=== PATIENT | male | born 1980 | race American Indian/Alaskan Native ===

== ENCOUNTER 2017-05-13 10:21 | Emergency (ER) | payer OTHER ==
--- NOTE | 2017-05-13 10:24 | ED PDOC ---
Arrival/HPI - General Time Seen by Provider: 05/13/17 10:22 Historian: Patient - History of Present Illness Narrative History of Present Illness (Text): 05/13/17 10:23 36 y/o male, no significant pmh, nkda, c/o lt. forearm wound evaluation for possible suture removal. Pt. had the lt. forearm suture about 6-7 days ago, wondering if the wound is ready for suture removal, no fever or chills, no headache or night sweat, no difficulty moving the fingers, no other medical or psychological complaints. Past Medical History - Provider Review Nursing Documentation Reviewed: Yes Family/Social History - Physician Review Nursing Documentation Reviewed: Yes Family/Social History: Unknown Family HX Allergies/Home Meds Allergies/Adverse Reactions: Allergies No Known Allergies Allergy (Verified 05/13/17 11:02) Review of Systems - Review of Systems Constitutional: absent: Fatigue, Fevers Eyes: absent: Vision Changes ENT: absent: Hearing Changes Respiratory: absent: SOB, Cough Cardiovascular: absent: Chest Pain Gastrointestinal: absent: Abdominal Pain, Diarrhea, Nausea, Vomiting Musculoskeletal: absent: Arthralgias, Back Pain Skin: Laceration. absent: Rash, Pruritis, Abscess, Ulcer Physical Exam Vital Signs Reviewed: Yes Vital Signs Temp Pulse Resp BP Pulse Ox 05/13/17 10:34 98.6 F 79 16 128/84 99 Temperature: Afebrile Blood Pressure: Normal Pulse: Regular Respiratory Rate: Normal Appearance: Positive for: Well-Appearing, Non-Toxic, Comfortable Pain Distress: None Mental Status: Positive for: Alert and Oriented X 3 - Systems Exam Head: Present: Atraumatic, Normocephalic Pupils: Present: PERRL Extroacular Muscles: Present: EOMI Conjunctiva: Present: Normal Mouth: Present: Moist Mucous Membranes Neck: Present: Normal Range of Motion Respiratory/Chest: Present: Clear to Auscultation, Good Air Exchange. No: Respiratory Distress, Accessory Muscle Use Cardiovascular: Present: Regular Rate and Rhythm, Normal S1, S2. No: Murmurs Abdomen: Present: Normal Bowel Sounds. No: Tenderness, Distention, Peritoneal Signs Back: Present: Normal Inspection Upper Extremity: Present: Normal Inspection, Other (Lt. forearm flexor region visible 3 sutured wound which is healing and not completely healed, no cellulitis or streaking, no ulcers, FROM without limitation including 5 fingers , sensation intact, motor 5/5, +radial pulse, capillary refill< 2 seconds, neurovascular intact. ). No: Cyanosis, Edema Lower Extremity: Present: Normal Inspection. No: Edema Neurological: Present: GCS=15, CN II-XII Intact, Speech Normal Skin: Present: Warm, Dry, Normal Color. No: Rashes Psychiatric: Present: Alert, Oriented x 3, Normal Insight, Normal Concentration Medical Decision Making ED Course and Treatment: 05/13/17 11:05 -Pt. has prescription for augmentin which he didn't fill it up yet. -wound clean with betadine and saline, gauze dressing, augmentin ordered. -discharge home with education on fill your augmentin prescription, follow up with your own pmd and suture can be removed in 2 days, return to the ER for any new or worsening signs or symptoms. - PA / INVESTOR RELATIONS SPECIALIST / Resident Statement MD/DO has reviewed & agrees with the documentation as recorded. Disposition/Present on Arrival - Present on Arrival Any Indicators Present on Arrival: No History of DVT/PE: No History of Uncontrolled Diabetes: No Urinary Catheter: No History of Decub. Ulcer: No - Disposition Have Diagnosis and Disposition been Completed?: Yes Diagnosis: Visit for wound check Disposition: HOME/ ROUTINE Disposition Time: 11:06 Patient Plan: Discharge Condition: GOOD Additional Instructions: discharge home with education on fill your augmentin prescription, follow up with your own pmd and suture can be removed in 2 days, return to the ER for any new or worsening signs or symptoms. Referrals: PCP,NO [Primary Care Provider] - Follow up with primary [facility] at [facility] [place] [Outside] - Follow up with primary Forms: WORK NOTE
[2017-05-13 10:37] VITALS: BP 128/84; PULSE 79; RESP 16; TEMP 98.6; O2SAT 99; BMI 24.4
[2017-05-13] MEDS ORDERED: Amoxicillin-Clav 875-125 mg Tab PO STA (11:02)
== END 2017-05-13 11:25 | disposition home or self-care (01) ==
LOC: ED 10:21
DX: Z51.89 Encounter for other specified aftercare (principal)

== ENCOUNTER 2017-09-13 06:46 | Emergency (ER) | payer SELFPAY ==
[2017-09-13 06:48] VITALS: BMI 24.4
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
[2017-09-13] MEDS ORDERED: ceFAZolin 1 gm in NS 1 GM/100 ML BAG IVPB ONE (07:45)
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
[2017-09-13 11:09] VITALS: BP 140/72; PULSE 72; RESP 16; TEMP 97.6; O2SAT 100
== END 2017-09-13 11:08 | disposition home or self-care (01) ==
LOC: ED 06:46
DX: M79.89 Other specified soft tissue disorders (principal); S62.91XB Unspecified fracture of right hand, initial encounter for open fracture; W22.8XXA Striking against or struck by other objects, initial encounter; Y92.89 Other specified places as the place of occurrence of the external cause
CPT/HCPCS: 73110; 73130; 96365; 99285; J0690

== ENCOUNTER 2017-10-20 09:57 | Emergency (ER) | payer MEDICAID, OTHER ==
[2017-10-20 10:07] VITALS: BMI 23.7
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
[2017-10-20 15:49] VITALS: BP 138/87; PULSE 73; RESP 18; TEMP 97.4; O2SAT 99
--- NOTE | 2017-10-20 16:47 | RAD ---
PROCEDURE: Right Hand Radiographs. HISTORY: hand pain r/o fx COMPARISON: None available. FINDINGS: BONES: Comminuted angulated fracture deformity of the distal 5th metacarpal. The remainder the visualized osseous structures appear intact without acute displaced fracture. JOINTS: No dislocation. SOFT TISSUES: Soft tissue swelling. No evidence of radiopaque foreign body. OTHER FINDINGS: None. IMPRESSION: Comminuted angulated fracture deformity of the distal 5th metacarpal with associated soft tissue swelling.
[2017-10-20 17:00] LABS: BARBITURATES, UR NEGATIVE (NEGATIVE); BENZODIAZEPINES, UR NEGATIVE (NEGATIVE)
[2017-10-20 17:03] LABS: OPIATES, UR POSITIVE (NEGATIVE); PHENCYCLIDINE, UR POSITIVE (NEGATIVE)
== END 2017-10-20 17:27 | disposition home or self-care (01) ==
LOC: MERGE 09:57 → ED 09:57
DX: S62.306A Unspecified fracture of fifth metacarpal bone, right hand, initial encounter for closed fracture (principal); X58.XXXA Exposure to other specified factors, initial encounter; F19.90 Other psychoactive substance use, unspecified, uncomplicated
CPT/HCPCS: 29125; 73130; 80324; 80345; 80346; 80349; 80353; 80358; 80361; 83992; 96372; 99285; J1630

== ENCOUNTER 2017-10-25 07:55 | Emergency (ER) | payer OTHER ==
[2017-10-25 07:55] VITALS: BMI 24.4
[2017-10-25 08:10] VITALS: TEMP 98.6
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
[2017-10-25 12:34] LABS: BASO # 0.01 K/mm3 (0.0-2.0); BASO % 0.2 % (0.0-3.0); EOS # 0.1 (0.0-0.7); EOS % 0.9 % (1.5-5.0); GRAN # 3.28 (1.4-6.5); HEMOGLOBIN 13.4 g/dL (14.0-18.0); LYMPH % 34.9 % (22.0-35.0); MEAN CELL VOLUME 96.7 fl (80.0-105.0); MEAN CORPUSCULAR HEMOGLOBIN 31.8 pg (25.0-35.0); MEAN CORPUSCULAR HGB CONC 32.8 g/dl (31.0-37.0); MEAN PLATELET VOLUME 10.7 fl (7.0-11.0); MONO # 0.3 (0.1-0.6); RBC 4.22 10^6/uL (3.5-6.1); RED CELL DISTRIBUTION WIDTH 13.6 % (11.5-14.5); WHITE BLOOD COUNT 5.7 10^3/ul (4.5-11.0)
[2017-10-25 12:48] LABS: ALB/GLOB RATIO 1.3 (1.1-1.8); ALT/SGPT 47 U/L (7-56); AST/SGOT 45 U/L (17-59); BLOOD UREA NITROGEN 16 mg/dL (7-21); CALCIUM 9.6 mg/dL (8.4-10.5); GFR AFRICAN-AMERICAN > 60; GFR NON-AFRICAN AMERICAN > 60
[2017-10-25 12:49] LABS: ACETAMINOPHEN < 10.0 ug/ml (10.0-20.0); SALICYLATE < 1 mg/dL (2.0-20.0)
[2017-10-25 14:22] VITALS: BP 125/72; PULSE 72; RESP 16; O2SAT 100
--- NOTE | 2017-10-25 15:13 | CT ---
PROCEDURE: CT Cervical Spine without contrast HISTORY: [facility] COMPARISON: No prior TECHNIQUE: Axial computed tomography images were obtained of the cervical spine without the use of intravenous contrast. Coronal and sagittal reformatted images were created and reviewed. Radiation dose: Total exam DLP = 562.25 mGy-cm. This CT exam was performed using one or more of the following dose reduction techniques: Automated exposure control, adjustment of the mA and/or kV according to patient size, and/or use of iterative reconstruction technique. FINDINGS: VERTEBRAE: No fracture. Normal alignment. No destructive bony lesion. DISCS/SPINAL CANAL/NEURAL FORAMINA: Mild degenerative changes noted. There is a osteophyte posterior disc bulge noted as C3-C4 associated with mild spinal stenosis. Discs heights are grossly preserved. PARASPINAL SOFT TISSUES: Unremarkable. OTHER FINDINGS: None. IMPRESSION: No evidence of acute fracture or subluxation. Mild degenerative changes more prominent at C3-C4 and C4-C5.
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
--- NOTE | 2017-10-25 19:36 | ED PDOC ---
Physical Exam Vital Signs Temp Pulse Resp BP Pulse Ox 10/25/17 14:21 72 16 125/72 100 10/25/17 08:08 98.6 F 79 22 112/48 L 96 Medical Decision Making ED Course and Treatment: 10/25/17 19:00 Case endorsed to me from Dr. Lloyd. Pending sobriety. Patient presents with a history of PCP abuse. Patient apparently had periods of agitation and restlessness. Was sedated by Dr. Lloyd. Currently resting comfortably Pending reassess and discharge when patient is awake. 10/25/17 22:41 Pt. is awake and alert.Explained to him the risks he takes in harming himself and possibly others with his drug use.Pt. understands and states he will refrain from future drug use.He is given outpatient referral.Pt. released in police custody. - Lab Interpretations Lab Results: 10/25/17 11:42 10/25/17 11:42 Lab Results 10/25/17 11:42: Alcohol, Quantitative < 10 10/25/17 11:42: Salicylates < 1 L, Acetaminophen < 10.0 L 10/25/17 11:42: Sodium 140, Potassium 4.2, Chloride 104, Carbon Dioxide 26, Anion Gap 14, BUN 16, Creatinine 1.0, Est GFR ( Amer) > 60, Est GFR (Non- Af Amer) > 60, Random Glucose 118 H, Calcium 9.6, Total Bilirubin 0.5, AST 45, ALT 47, Alkaline Phosphatase 61, Total Protein 7.1, Albumin 4.0, Globulin 3.2, Albumin/Globulin Ratio 1.3 10/25/17 11:42: WBC 5.7, RBC 4.22, Hgb 13.4 L, Hct 40.8 L, MCV 96.7, MCH 31.8, MCHC 32.8, RDW 13.6, Plt Count 176, MPV 10.7, Gran % 58.0, Lymph % (Auto) 34.9, [place] % (Auto) 6.0, Eos % (Auto) 0.9 L, Baso % (Auto) 0.2, Gran # 3.28, Lymph # ( Auto) 2.0, [place] # (Auto) 0.3, Eos # (Auto) 0.1, Baso # (Auto) 0.01 I have reviewed the lab results: Yes - RAD Interpretation Radiology Orders: 10/25/17 08:15 CERVICAL SPINE W/O CONTRAST [CT] Stat HEAD W/O CONTRAST [CT] Stat - Scribe Statement The provider has reviewed the documentation as recorded by the Agustínibleti Gee Provider Scribe Attestation: All medical record entries made by the Scribe were at my direction and personally dictated by me. I have reviewed the chart and agree that the record accurately reflects my personal performance of the history, physical exam, medical decision making, and the department course for this patient. I have also personally directed, reviewed, and agree with the discharge instructions and disposition. Disposition/Present on Arrival - Present on Arrival Any Indicators Present on Arrival: No History of DVT/PE: No History of Uncontrolled Diabetes: No Urinary Catheter: No History of Decub. Ulcer: No History Surgical Site Infection Following: None - Disposition Have Diagnosis and Disposition been Completed?: Yes Diagnosis: Drug abuse, phencyclidine Disposition: RELEASED IN POLICE CUSTODY Disposition Time: 22:40 Patient Plan: Discharge Condition: GOOD Discharge Instructions (ExitCare): Polysubstance Abuse (ED) Additional Instructions: Patient is medically cleared for incarceration Referrals: PCP,NO [Primary Care Provider] - Follow up with primary [facility] [Outside] - Follow up with primary
== END 2017-10-25 22:50 ==
LOC: ED 07:55
DX: F16.10 Hallucinogen abuse, uncomplicated (principal); Z65.3 Problems related to other legal circumstances
CPT/HCPCS: 70450; 72125; 80053; 85025; 99284; G0480; J1630; J2060

== ENCOUNTER 2018-10-26 20:39 | Emergency (ER) | payer MEDICAID, OTHER ==
[2018-10-26 20:56] VITALS: BMI 25.0
[2018-10-26 21:52] VITALS: RESP 18; TEMP 98.5; O2SAT 100
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
[2018-10-27 02:19] VITALS: BP 126/85; PULSE 84
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
--- NOTE | 2018-10-27 09:38 | RAD ---
Date of service: 10/26/2018 PROCEDURE: Right Wrist Radiographs. HISTORY: hand pain/wrist pain COMPARISON: 10/20/2017 FINDINGS: BONES: There has been healing of the 5th metacarpal fracture. There are no acute fractures JOINTS: Normal. No dislocation. SOFT TISSUES: Normal. OTHER FINDINGS: None. IMPRESSION: There has been healing of the 5th metacarpal fracture. There are no acute fractures
--- NOTE | 2018-10-27 09:38 | RAD ---
Date of service: 10/26/2018 PROCEDURE: Right Wrist Radiographs. HISTORY: hand pain/wrist pain COMPARISON: None. FINDINGS: BONES: Normal. No fracture. JOINTS: Normal. No dislocation. SOFT TISSUES: Normal. OTHER FINDINGS: None. IMPRESSION: Normal right wrist radiographs.
== END 2018-10-27 01:00 | disposition home or self-care (01) ==
LOC: ED 20:39
DX: F16.10 Hallucinogen abuse, uncomplicated (principal); M79.641 Pain in right hand; F17.210 Nicotine dependence, cigarettes, uncomplicated

== ENCOUNTER 2018-12-14 13:19 | Emergency (ER) | payer MEDICAID ==
[2018-12-14 13:25] VITALS: BMI 27.4
[2018-12-14 13:26] VITALS: TEMP 97.6
--- NOTE | 2018-12-14 13:39 | ED PDOC ---
Arrival/HPI - General Chief Complaint: Eye Problem Time Seen by Provider: 12/14/18 13:22 Historian: Patient - History of Present Illness Narrative History of Present Illness (Text): 12/14/18 13:39 38 year old male, whose past medical history includes substance abuse, who presents to the ED for a left eye injury. Patient reports he sustained the injury while getting restrained by the police after he overdosed on drugs last week. Patient reports presenting to [facility], where he was diagnosed with a fracture around his left eye. Patient also reports he was transferred to [facility] after treatment but has recently been released, and would like to follow up on his injury. Patient denies any new trauma, vision changes, epistaxis fevers, chills, headache, dizziness, chest pain, shortness of breath, dyspnea on exertion, cough, abdominal pain, nausea, vomiting, diarrhea, back pain, neck pain, urinary/bowel changes, or any other complaints. Time/Duration: < week Symptom Onset: Sudden Symptom Course: Unchanged Activities at Onset: Other (Sustained left eye injury while getting restrained by police) Context: Street Past Medical History - Provider Review Nursing Documentation Reviewed: Yes - Past History Past History: No Previous (pt is right hand dominate) - Infectious Disease Hx of Infectious Diseases: None - Tetanus Immunization Tetanus Immunization: Up to Date (< 1 year ago) - Past Medical History Past Medical History: No Previous (pt is right hand dominate) - Psychiatric Hx Psychophysiologic Disorder: No Hx Substance Use: Yes (Marijuana) - Anesthesia Hx Anesthesia: No Family/Social History - Physician Review Nursing Documentation Reviewed: Yes Family/Social History: Unknown Family HX Smoking Status: Heavy Smoker > 10 Cigarettes Daily Hx Alcohol Use: Yes Hx Substance Use: Yes (Marijuana) Allergies/Home Meds Allergies/Adverse Reactions: Allergies No Known Allergies Allergy (Verified 12/14/18 13:29) Home Medications: Home Meds Medication Instructions Recorded Confirmed No Known Home Med 10/26/18 12/14/18 Review of Systems - Physician Review All systems were reviewed & negative as marked: Yes - Review of Systems Constitutional: Normal Eyes: Other (Injected left eye). absent: Vision Changes ENT: Normal. absent: Epistaxis Respiratory: Normal. absent: SOB, Cough Cardiovascular: Normal. absent: Chest Pain, Edema Gastrointestinal: Normal. absent: Abdominal Pain, Vomiting Skin: Normal. absent: Rash, Pruritis Neurological: Normal. absent: Headache, Dizziness Hemo/Lymphatic: Normal Psychiatric: Normal Physical Exam Vital Signs Reviewed: Yes Vital Signs Temp Pulse Resp BP Pulse Ox 12/14/18 13:25 97.6 F 83 18 159/77 H 96 Temperature: Afebrile Blood Pressure: Hypertensive Pulse: Regular Respiratory Rate: Normal Appearance: Positive for: Well-Appearing, Non-Toxic, Comfortable - Systems Exam Head: Present: Tenderness, Other (mild tenderness to left zygomatic arch) Pupils: Present: PERRL Extroacular Muscles: Present: EOMI Conjunctiva: Present: Other (subconjunctival hemorrhage, no hyphema, no ecchymosis or visual changes) Nose (External): Present: Atraumatic Nose (Internal): Present: Normal Inspection, No Active Bleeding Respiratory/Chest: Present: Clear to Auscultation, Good Air Exchange. No: Respiratory Distress, Accessory Muscle Use Cardiovascular: Present: Regular Rate and Rhythm, Normal S1, S2. No: Murmurs Abdomen: No: Tenderness, Distention, Peritoneal Signs Upper Extremity: Present: Normal Inspection. No: Cyanosis, Edema Lower Extremity: Present: Normal Inspection. No: Edema Neurological: Present: GCS=15, CN II-XII Intact, Speech Normal Skin: Present: Warm, Dry, Normal Color. No: Rashes Psychiatric: Present: Alert, Oriented x 3, Normal Insight, Normal Concentration Medical Decision Making ED Course and Treatment: 12/14/18 13:52 Impression: 38 year old patient who presents to the ED for a left eye injury. Plan: -- Reassess and disposition Prior Visits: Notes and results from previous visits were reviewed. Progress Notes: 12/14/18 14:[address] [facility], state patient was present there on 12/07/18, was positive for orbital floor fracture with swelling. Patient was told to follow up with [facility] after swelling is gone. - Scribe Statement The provider has reviewed the documentation as recorded by the [employer] training under [employer]. Provider Scribe Attestation: All medical record entries made by the Scribe were at my direction and personally dictated by me. I have reviewed the chart and agree that the record accurately reflects my personal performance of the history, physical exam, medical decision making, and the department course for this patient. I have also personally directed, reviewed, and agree with the discharge instructions and disposition. Disposition/Present on Arrival - Present on Arrival Any Indicators Present on Arrival: No History of DVT/PE: No History of Uncontrolled Diabetes: No Urinary Catheter: No History of Decub. Ulcer: No History Surgical Site Infection Following: None - Disposition Have Diagnosis and Disposition been Completed?: Yes Diagnosis: Fracture of orbital floor Disposition: HOME/ ROUTINE Disposition Time: 14:32 Patient Plan: Discharge Condition: GOOD Discharge Instructions (ExitCare): Skull and Facial Fractures (DC) Additional Instructions: VERONICA MANLEY, thank you for letting us take care of you today. Your provider was Xenia Arndt MD and you were treated for ORBITAL FLOOR FRACTURE that was diagnosed at the [facility] last week. The oral maxillofacial surgeon who evaluated you last week recommended you follow up after the swelling went down for possible surgery. The emergency medical care you received today was directed at your acute symptoms. Return to the Emergency Department if your symptoms worsen, do not improve, or if you have any other problems. Please contact the clinic below for a follow up appointment in 1-[address] [phone] Bring any paperwork you were given at discharge with you along with any medications you are taking to your follow up visit. Our treatment cannot replace ongoing medical care by a primary care provider outside of the emergency department. Thank you for allowing the [facility] team to be part of your care today. Forms: [employer] (Thai)
[2018-12-14 14:46] VITALS: BP 145/78; PULSE 86; RESP 16; O2SAT 99
== END 2018-12-14 14:45 | disposition home or self-care (01) ==
LOC: ED 13:19
DX: S02.32XA Fracture of orbital floor, left side, initial encounter for closed fracture (principal); X58.XXXA Exposure to other specified factors, initial encounter

== ENCOUNTER 2018-12-22 15:37 | Emergency (ER) | payer MEDICAID ==
[2018-12-22 15:42] VITALS: TEMP 98.2; BMI 25.2
--- NOTE | 2018-12-22 16:01 | ED PDOC ---
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 Pt. is here, FS 104, admit use of the heroine/pcp use on the street, given narcan and the patient woke up agitated, angry cause he was given narcan. Pt. stated that he feels well, no homicidal/suicidal ideation, no auditory or visual hallucination, no head/neck/back/extremity/abdomen injury or pain, no other medical or psychological complaints. Past Medical History - Provider Review Nursing Documentation Reviewed: Yes - Past History Past History: No Previous (pt is right hand dominate) - Infectious Disease Hx of Infectious Diseases: None - Tetanus Immunization Tetanus Immunization: Up to Date (< 1 year ago) - Past Medical History Past Medical History: No Previous (pt is right hand dominate) - Psychiatric Hx Psychophysiologic Disorder: No Hx Substance Use: Yes (Marijuana) - Anesthesia Hx Anesthesia: No Family/Social History - Physician Review Nursing Documentation Reviewed: Yes Family/Social History: Unknown Family HX Smoking Status: Heavy Smoker > 10 Cigarettes Daily Hx Alcohol Use: Yes Hx Substance Use: Yes (Marijuana) Allergies/Home Meds Allergies/Adverse Reactions: Allergies No Known Allergies Allergy (Verified 12/22/18 16:03) Home Medications: Home Meds Medication Instructions Recorded Confirmed No Known Home Med 10/26/18 12/22/18 Review of Systems - Review of Systems Constitutional: absent: Fatigue, Fevers Eyes: absent: Vision Changes ENT: absent: Hearing Changes Respiratory: absent: SOB, Cough Cardiovascular: absent: Chest Pain Gastrointestinal: absent: Abdominal Pain, Nausea, Vomiting Genitourinary Male: absent: Dysuria Musculoskeletal: absent: Arthralgias, Back Pain, Neck Pain Skin: absent: Rash, Pruritis, Skin Lesions Neurological: absent: Headache, Dizziness Psychiatric: absent: Anxiety, Depression, Suicidal Ideation Physical Exam Vital Signs Reviewed: Yes Vital Signs Temp Pulse Resp BP Pulse Ox 12/22/18 15:41 98.2 F 89 16 152/94 H 99 Temperature: Afebrile Blood Pressure: Hypertensive Pulse: Regular Respiratory Rate: Normal Appearance: Positive for: Well-Appearing, Non-Toxic, Comfortable Pain Distress: None Mental Status: Positive for: Alert and Oriented X 3 Finger Stick Blood Glucose: 104 - Systems Exam Head: Present: Atraumatic, Normocephalic, Other (no facial bony tenderness or swelling. ). No: Tenderness, Contusion, Swelling, Ecchymosis, Abrasion, Laceration Pupils: Present: PERRL Extroacular Muscles: Present: EOMI Conjunctiva: Present: Normal Ears: Present: NORMAL TM, Normal Canal Mouth: Present: Moist Mucous Membranes Pharnyx: No: ERYTHEMA, EXUDATE, TONSILS ENLARGED, Uvular Deviation, Muffled/Hoarse Voice, Soft Palate/Uvular Edema Nose (External): Present: Atraumatic. No: Abrasion, Contusion, Laceration Nose (Internal): Present: Normal Inspection, No Active Bleeding. No: Rhinorrhea, Septal Hematoma, Epistaxis Neck: Present: Normal Range of Motion, Trachea Midline. No: Meningeal Signs, MIDLINE TENDERNESS, Paraspinal Tenderness, Lymphadenopathy Respiratory/Chest: Present: Clear to Auscultation, Good Air Exchange. No: Respiratory Distress, Accessory Muscle Use Cardiovascular: Present: Regular Rate and Rhythm, Normal S1, S2. No: Murmurs Abdomen: No: Tenderness, Distention, Peritoneal Signs, Rebound, Guarding Back: Present: Normal Inspection. No: CVA Tenderness, Midline Tenderness, Paraspinal Tenderness, Pain with Leg Raise, Decubitus Ulcer Upper Extremity: Present: Normal Inspection, Normal ROM, NORMAL PULSES, Neurovascularly Intact. No: Cyanosis, Edema, Deformity Lower Extremity: Present: Normal Inspection, NORMAL PULSES, Normal ROM, Neurovascularly Intact. No: Edema, Deformity Neurological: Present: GCS=15, CN II-XII Intact, Speech Normal, Motor Func Grossly Intact, Normal Cerebellar Funct, Gait Normal, Memory Normal Skin: Present: Warm, Dry, Normal Color. No: Rashes Psychiatric: Present: Alert, Oriented x 3, Normal Insight, Normal Concentration Medical Decision Making ED Course and Treatment: 12/22/18 16:00 -FS 104 -CT head -Observe for 3 hours 12/22/18 19:00 -CT head No acute intracranial abnormalities. No significant findings to account for the clinical presentation. -pt. is calmed, observed in the ER 3 hours, alert and oriented x 3, offered further observation but declined. Pt. is no homicidal/suicidal ideation, no auditory or visual hallucination, wants to be discharged home. -Discharge home with education on avoid drug abuse, follow up with your own pmd within 2 days, return to the ER for any new or worsening signs or symptoms. - RAD Interpretation Radiology Orders: 12/22/18 15:57 HEAD W/O CONTRAST [CT] Stat Date of service: 12/22/2018 PROCEDURE: CT HEAD WITHOUT CONTRAST. HISTORY: found on the street, agitated COMPARISON: 10/26/2018. CT head TECHNIQUE: Axial computed tomography images were obtained through the head/brain without intravenous contrast. Supplemental Coronal and Sagittal projections created and reviewed. Radiation dose: Total exam DLP = 994.69 mGy-cm. This CT exam was performed using one or more of the following dose reduction techniques: Automated exposure control, adjustment of the mA and/or kV according to patient size, and/or use of iterative reconstruction technique. FINDINGS: HEMORRHAGE: No intracranial hemorrhage. BRAIN: No mass effect or edema. No atrophy or chronic microvascular ischemic changes. VENTRICLES: Unremarkable. No hydrocephalus. CALVARIUM: Unremarkable. PARANASAL SINUSES: Chronic ethmoid air cell disease. Mucous retention cyst right maxillary sinus. MASTOID AIR CELLS: Unremarkable as visualized. No inflammatory changes. OTHER FINDINGS: None. IMPRESSION: No acute intracranial abnormalities. No significant findings to account for the clinical presentation. Side Door Man: Radiologist - PA / TIER AND DETONATOR / Resident Statement MD/DO has reviewed & agrees with the documentation as recorded. Disposition/Present on Arrival - Present on Arrival Any Indicators Present on Arrival: No History of DVT/PE: No History of Uncontrolled Diabetes: No Urinary Catheter: No History of Decub. Ulcer: No History Surgical Site Infection Following: None - Disposition Have Diagnosis and Disposition been Completed?: Yes Diagnosis: Drug abuse Disposition: HOME/ ROUTINE Disposition Time: 19:00 Patient Plan: Discharge Condition: GOOD Additional Instructions: -Discharge home with education on avoid drug abuse, follow up with your own pmd within 2 days, return to the ER for any new or worsening signs or symptoms. Forms: WORK NOTE
--- NOTE | 2018-12-22 18:47 | CT ---
Date of service: 12/22/2018 PROCEDURE: CT HEAD WITHOUT CONTRAST. HISTORY: found on the street, agitated COMPARISON: 10/26/2018. CT head TECHNIQUE: Axial computed tomography images were obtained through the head/brain without intravenous contrast. Supplemental Coronal and Sagittal projections created and reviewed. Radiation dose: Total exam DLP = 994.69 mGy-cm. This CT exam was performed using one or more of the following dose reduction techniques: Automated exposure control, adjustment of the mA and/or kV according to patient size, and/or use of iterative reconstruction technique. FINDINGS: HEMORRHAGE: No intracranial hemorrhage. BRAIN: No mass effect or edema. No atrophy or chronic microvascular ischemic changes. VENTRICLES: Unremarkable. No hydrocephalus. CALVARIUM: Unremarkable. PARANASAL SINUSES: Chronic ethmoid air cell disease. Mucous retention cyst right maxillary sinus. MASTOID AIR CELLS: Unremarkable as visualized. No inflammatory changes. OTHER FINDINGS: None. IMPRESSION: No acute intracranial abnormalities. No significant findings to account for the clinical presentation.
[2018-12-22 19:34] VITALS: BP 134/79; PULSE 76; RESP 18; O2SAT 98
== END 2018-12-22 19:12 | disposition home or self-care (01) ==
LOC: ED 15:37
DX: F19.10 Other psychoactive substance abuse, uncomplicated (principal)
CPT/HCPCS: 70450; 96372; 99285; J1630; J2060